=== PATIENT | female | born 1950 | race Caucasian/White ===

== ENCOUNTER 2021-03-06 12:09 | Emergency (ER) | payer MEDICARE, OTHER, SELFPAY ==
[2021-03-06 12:10] VITALS: BP 196/89; PULSE 73; RESP 16; TEMP 36.7; O2SAT 98; BMI 28.6
[2021-03-06 12:21] VITALS: BP 196/89; PULSE 72; RESP 15; O2SAT 97
--- NOTE | 2021-03-06 12:28 | ED_ITS ---
HPI - Chest Pain General: Chief Complaint: Chest Pain Stated Complaint: chest pain Time Seen by Provider: 03/06/21 12:15 Source: patient Mode of arrival: EMS Limitations: no limitations History of Present Illness: HPI narrative: Patient is a 70-year-old female with no significant medical history who presents to the emergency department after a single episode of chest pain while in her doctor's office. Chest pain was retrosternal and lasted for only a few minutes. She is currently chest pain-free. This happened about 3 hours ago. The patient was given aspirin in the clinic and sent to the emergency department to be evaluated. She has no cardiac history, her father had an NC in his 80s. She has no complaints at this moment. MD complaint: chest pain Onset (ago): hour(s) (3) Timing of current episode: episodic Prior episodes: No Onset: during rest Pain location: substernal Pain radiation: none Severity: mild Quality: sharp Relieving factors: rest Exacerbating factors: nothing Associated symptoms: Deny abdominal pain, diaphoresis, dyspnea, fever(s), leg edema, nausea, palpitations, sense of impending doom, syncope or vomiting Treatment prior to arrival: aspirin Review of Systems General: Reports: 10 or more systems reviewed and unremarkable except in HPI and below Const: Denies: fever(s) or diaphoresis Card: Denies: palpitations or syncope Resp: Denies: dyspnea GI: Denies: abdominal pain, nausea or vomiting FOR[facility]LY [facility] ED PFSH: Medical History Rhus dermatitis Social History Smoking and tobacco status: never smoked Second hand smoke exposure: No Smoking risk assessment/counseling performed?: No Alcohol intake: never Desire information about alcohol rehabilitation?: No Counseling given: No Desire information about substance/drug rehabilitation?: No Counseling given: No Physical Exam Const: COMMON NORMALS: no acute distress, average body habitus, patient oriented x3, no limitations, healthy appearing, alert and well nourished HENMT: COMMON NORMALS: normocephalic, atraumatic and moist oral mucous membranes HEAD & SCALP: normocephalic and atraumatic Neck/C-Spine: COMMON NORMALS: no meningeal signs and no JVD Chest: COMMONS NORMALS: normal inspection of the chest and normal palpation of entire chest wall Resp: COMMON NORMALS: normal respiratory effort, No retractions, No use of accessory muscles, clear to auscultation bilaterally and percussion normal AUSCULTATION: clear to auscultation bilaterally PERCUSSION: percussion normal Cardio: COMMON NORMALS: no JVD, regular rate, regular rhythm, S1 normal heart sound present, S2 normal heart sound present, No gallops present (Cardio), No clicks present (Cardio), No murmurs present (Cardio), No rub (Cardio) and Peripheral pulses 2+ throughout RATE: regular rate RHYTHM: regular rhythm HEART SOUNDS: S1 normal heart sound present and S2 normal heart sound present PERIPHERAL PULSES: Peripheral pulses 2+ throughout GI: COMMON NORMALS: Normal to inspection, nondistended, normoactive bowel sounds present, Soft to palpation, non-tender, No hepatosplenomegaly present, no masses and no bruits PALPATION: Yes Soft to palpation and Yes No hepatosplenomegaly present Extremity: COMMON NORMALS: normal to inspection, full ROM, capillary refill normal, no calf tenderness and no pedal edema Neuro: COMMON NORMALS: patient oriented x3 SENSORIUM/ORIENTATION: Yes alert MENINGEAL SIGNS: Yes no meningeal signs Course Reevaluation(s): Reevaluation #1: Discussed her lab and imaging findings with the patient and her daughter. Explained that her cardiac enzymes are not suggestive of a cardiac cause of her chest pain. The patient stated that she did not think she had a cardiac issue. Baseline troponin was normal and she had a flat 2-hour delta. She had very mild elevation of her lipase which I do not believe is clinically significant. We discussed her blood pressure and she said she had schedule an appointment with her primary care provider tomorrow for further evaluation of her blood pressure and to see if she needs to be started on medication. Blood pressure much improved following a single dose of intravenous labetalol. She is discharged home with no new orders. She voiced understanding and is in agreement with the plan. Time: 15:51 Vital Signs: Vital signs: Vital Signs Temperature 98.1 F 03/06/21 12:10 Pulse Rate 74 03/06/21 16:01 Respiratory Rate 14 03/06/21 16:01 Blood Pressure 145/96 03/06/21 16:01 Pulse Oximetry 97 03/06/21 16:01 MDM - Chest Pain MDM Narrative: Medical decision making narrative: 70-year-old female patient who presented to the emergency department with chest pain. Evaluation in the emergency department is unremarkable. She was noted to be in hypertensive urgency also although she has no prior history of hypertension. She will follow up with her primary care provider to see if her blood pressure remains elevated and if she needs to be started on antihypertensives. In the interim she will be discharged home with no new orders. Medical Records: Attestation: I reviewed the patient's medical records. Lab Data: Attestation: I reviewed the patient's lab results. Labs: Lab Results 03/06/21 03/06/21 03/06/21 Range/Units 12:20 12:20 12:20 WBC 10.7 H (4.0-10.0) 10^3/ uL RBC 4.94 (4.1-5.3) 10^6/u L Hgb 13.6 (11.5-15.3) g/dL Hct 42.3 (37.0-47.0) % MCV 85.6 (81-99) fL MCH 27.5 L (28.0-34.0) pg MCHC 32.2 (30.0-36.0) g/dL RDW 14.0 (12.1-15.1) % Plt Count 379 (130-400) 10^3/c mm MPV 10.8 H (7.4-10.4) fL Neut % (Auto) 59.4 % Lymph % (Auto) 28.4 % [place] % (Auto) 9.4 % Eos % (Auto) 1.5 % Baso % (Auto) 0.6 % Neut # (Auto) 6.35 (1.8-7.7) 10^3/u L Lymph # (Auto) 3.0 (0.8-4.8) 10^3/u L [place] # (Auto) 1.0 H (0.2-0.9) 10^3/u L Eos # (Auto) 0.2 (0.0-0.8) 10^3/u L Baso # (Auto) 0.1 (0.0-0.1) 10^3/u L Nucleated RBC % (a uto) 0 % Nucleated RBCs # 0.0 /100WBC Sodium 136 (136-145) mmol/L Potassium 4.5 (3.5-5.1) mmol/L Chloride 100 (98-107) mmol/L Carbon Dioxide 25 (22-29) mmol/L Anion Gap 15.5 (5-19) BUN 16 (8-23) mg/dL Creatinine 0.7 (0.5-0.9) mg/dL GFR Calculation 83.2 L (90-130) mL/min Glucose 81 (65-115) mg/dL Calculated Osmolal ity 282 L (285-295) mOsm/k g Calcium 9.3 (8.5-10.5) mg/dL Total Bilirubin 0.4 (0.15-1.2) mg/dL AST 23 (0-32) U/L ALT 21 (0-33) U/L Alkaline Phosphata se 88 (35-105) IU/L Troponin T Baselin e 10 (0-10) ng/L Troponin T 120 Min mentasta (0-10) ng/L Delta Troponin T (0-10) ABS# NT-Pro-B Natriuret Pep 313 H (0-125) pg/mL Total Protein 7.0 (6.6-8.7) g/dL Albumin 4.5 (3.5-5.2) g/dL Globulin 2.5 (1.3-4.6) g/dL Lipase 64 H (13-60) U/L 03/06/21 Range/Units 14:17 WBC (4.0-10.0) 10^3/ uL RBC (4.1-5.3) 10^6/u L Hgb (11.5-15.3) g/dL Hct (37.0-47.0) % MCV (81-99) fL MCH (28.0-34.0) pg MCHC (30.0-36.0) g/dL RDW (12.1-15.1) % Plt Count (130-400) 10^3/c mm MPV (7.4-10.4) fL Neut % (Auto) % Lymph % (Auto) % [place] % (Auto) % Eos % (Auto) % Baso % (Auto) % Neut # (Auto) (1.8-7.7) 10^3/u L Lymph # (Auto) (0.8-4.8) 10^3/u L [place] # (Auto) (0.2-0.9) 10^3/u L Eos # (Auto) (0.0-0.8) 10^3/u L Baso # (Auto) (0.0-0.1) 10^3/u L Nucleated RBC % (a uto) % Nucleated RBCs # /100WBC Sodium (136-145) mmol/L Potassium (3.5-5.1) mmol/L Chloride (98-107) mmol/L Carbon Dioxide (22-29) mmol/L Anion Gap (5-19) BUN (8-23) mg/dL Creatinine (0.5-0.9) mg/dL GFR Calculation (90-130) mL/min Glucose (65-115) mg/dL Calculated Osmolal ity (285-295) mOsm/k g Calcium (8.5-10.5) mg/dL Total Bilirubin (0.15-1.2) mg/dL AST (0-32) U/L ALT (0-33) U/L Alkaline Phosphata se (35-105) IU/L Troponin T Baselin e (0-10) ng/L Troponin T 120 Min mentasta 11.19 H (0-10) ng/L Delta Troponin T 1.19 (0-10) ABS# NT-Pro-B Natriuret Pep (0-125) pg/mL Total Protein (6.6-8.7) g/dL Albumin (3.5-5.2) g/dL Globulin (1.3-4.6) g/dL Lipase (13-60) U/L Imaging Data^: CXR: Attestation: I personally reviewed and interpreted this imaging study as follows: Radiologist's impression: [address] [address] XRay Report Signed Patient: Amrita Friedman #: [id number] : 2Acct#:[id number] Age/Sex: 70 / FADM Date: 03/06/21 Loc: ERRoom/Bed: Attending Dr: Ordering Provider/Ordering MD: Jeronimo Pierre MD, [facility] [place] Date of Service: 03/06/21 Procedure(s): XR chest 1V portable [id number] Accession Number(s): [id number] Report Number: [id number] PROCEDURE INFORMATION: Exam: XR Chest Exam date and time: 03/06/2021 12:29 PM Age: 70 years old Clinical indication: Chest pain; Type not specified; Additional info: Cp TECHNIQUE: Imaging protocol: XR of the chest. Views: 1 view. COMPARISON: No relevant prior studies available. FINDINGS: Lungs: Unremarkable. No consolidation. Pleural spaces: Unremarkable. No pleural effusion. No pneumothorax. Heart/Mediastinum: Unremarkable. No cardiomegaly. Bones/joints: Unremarkable. XR/XR chest 1V portable [id number] IMPRESSION: No acute findings. Dictated By:Brian Levi Signed By:Nisha Levi Date/Time:03/06/21 1320 DD/ 1319 EKG Data^: EKG 1: Attestation: I personally reviewed and interpreted this EKG as follows: EKG interpretation date: 03/06/21 EKG interpretation time: 12:21 Prior EKG tracings: not available for review Interpretation: Sinus rhythm. Heart rate 70 bpm. Normal axis. No ST changes. EKG 2: Attestation: I personally reviewed and interpreted this EKG as follows: EKG interpretation date: 03/06/21 EKG interpretation time: 15:31 Prior EKG tracings: available for review Interpretation: Sinus rhythm. Heart rate [address] changes. No significant change from earlier. Discharge Plan Discharge Patient Disposition: Home Clinical Impression: Blood pressure elevated without history of HTN Chest pain Qualifiers: Chest pain type: unspecified Qualified Code(s): R07.9 - Chest pain, unspecified Condition: Stable Prescriptions: Continued timolol maleate 0.5 % drops 1 drp ophthalmic (eye) DAILY RF: 0 ascorbate calcium (vitamin C) 500 mg tablet 500 mg PO DAILY RF: 0 magnesium chloride 64 mg tablet,delayed release (DR/EC) 64 mg PO DAILY RF: 0 cholecalciferol (vitamin D3) 25 mcg (1,000 unit) capsule 25 mcg PO DAILY RF: 0 Complete Multivitamin Tablet 1 tab PO DAILY RF: 0 methylprednisolone [Medrol (Leo)] 4 mg tablets,dose pack See Rx Instructions PO PER PKG DIR RF: 0 calcium 500 mg Tablet 500 mg PO BID RF: 0 potassium 99 mg Tablet 99 mg PO DAILY RF: 0 Glucosamine Chondroitin 550-30-1 mg Capsule 1 cap PO BID RF: 0 Discharge Orders: Discharge ED (Routine); Ordered 03/06/21 Ordered By: Jeronimo Pierre Referrals: THONG Pearson, MEDICAL IMAGING TECHNOLOGIST [Primary Care Provider] - 1-3 days Discharge Diet: Usual diet Discharge Activity: Limit activity as instructed Patient Instructions: Chest Pain (ED) Activity Restrictions/Additional Instructions: Return for any new or worsening symptoms. Follow-up with your primary care provider within 3 days for follow-up of your blood pressure and further evaluation. Continue your home medications. Coding Level of Care Code ED Cashier Payments Received for Haydeeg Fwd Exam Comprehensive
--- NOTE | 2021-03-06 12:28 | ECG_ITS ---
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 Measurements Intervals Warren Rate: 70 P: 58 AK: 150 QRS: -11 QRSD: 87 T: 35 QT: 376 QTc: 408 Interpretive Statements SINUS RHYTHM POSSIBLE LEFT ATRIAL ENLARGEMENT [-0.1mV P WAVE IN V1/V2] POSSIBLE RIGHT VENTRICULAR CONDUCTION DELAY [RSR (QR) IN V1/V2] No previous ECG available for comparison Electronically Signed On 03-07-2021 7:40:58 CDT by Hank Escalante M.D. [id number]
[2021-03-06 12:51] LABS: Basophils # 0.1 10^3/uL (0.0-0.1); Basophils % 0.6 %; Eosinophils # 0.2 10^3/uL (0.0-0.8); Eosinophils % 1.5 %; Hematocrit 42.3 % (37.0-47.0); Hemoglobin 13.6 g/dL (11.5-15.3); Lymphocytes % 28.4 %; Mean Corpuscular HGB Conc 32.2 g/dL (30.0-36.0); Mean Corpuscular Hemoglobin 27.5 pg (28.0-34.0); Mean Corpuscular Volume 85.6 fL (81-99); Mean Platelet Volume 10.8 fL (7.4-10.4); Monocytes % 9.4 %; Neutrophils # 6.35 10^3/uL (1.8-7.7); Neutrophils % 59.4 %; Nucleated Red Blood Cells % 0 %; Platelet Count 379 10^3/cmm (130-400); Red Blood Count 4.94 10^6/uL (4.1-5.3); White Blood Count 10.7 10^3/uL (4.0-10.0)
[2021-03-06 13:04] LABS: Troponin(5th) Baseline 10 ng/L (0-10)
[2021-03-06 13:13] LABS: Alanine Aminotransferase 21 U/L (0-33); Albumin Level 4.5 g/dL (3.5-5.2); Alkaline Phosphatase 88 IU/L (35-105); Blood Urea Nitrogen 16 mg/dL (8-23); Calcium 9.3 mg/dL (8.5-10.5); Carbon Dioxide 25 mmol/L (22-29); Chloride 100 mmol/L (98-107); Globulin 2.5 g/dL (1.3-4.6); Glomerular Filtration Rate 83.2 mL/min (90-130); Glucose 81 mg/dL (65-115); Lipase 64 U/L (13-60); NT Pro B Type Natriuretic Pept 313 pg/mL (0-125); Osmolality Calculated 282 mOsm/kg (285-295); Sodium 136 mmol/L (136-145); Total Bilirubin 0.4 mg/dL (0.15-1.2)
[2021-03-06 13:19] LABS: Anion Gap 15.5 (5-19); Aspartate Amino Transferase 23 U/L (0-32); Potassium 4.5 mmol/L (3.5-5.1)
[2021-03-06 13:54] VITALS: BP 188/116; PULSE 72; RESP 19; O2SAT 97
[2021-03-06] MEDS: labetalol 5 mg/mL SDV 20mL 10 MG IVP (14:19)
--- NOTE | 2021-03-06 14:28 | ECG_ITS ---
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 Measurements Intervals Tiro Rate: 65 P: 56 MO: 142 QRS: -12 QRSD: 96 T: 22 QT: 388 QTc: 403 Interpretive Statements SINUS RHYTHM POSSIBLE LEFT ATRIAL ENLARGEMENT [-0.1mV P WAVE IN V1/V2] INCOMPLETE RIGHT BUNDLE BRANCH BLOCK [90+ ms QRS DURATION, TERMINAL R IN V1/V2, 40+ ms S IN I/aVL/V4/V5/V6] MODERATE ST DEPRESSION [0.05+ mV ST DEPRESSION] Compared to ECG 03/06/2021 12:21:08 Incomplete right bundle-branch block now present ST (T wave) deviation now present Electronically Signed On 03-07-2021 7:45:01 CDT by Hank Escalante M.D. [id number]
[2021-03-06 14:45] VITALS: BP 174/97; PULSE 68; RESP 20; O2SAT 95
[2021-03-06 14:47] LABS: Troponin 5 2HR 11.19 ng/L (0-10); Troponin 5 2HR Delta 1.19 ABS# (0-10)
[2021-03-06 16:01] VITALS: BP 145/96; PULSE 74; RESP 14; O2SAT 97
== END 2021-03-06 16:02 | disposition home or self-care (01) ==
PROVIDERS: Emergency Provider Family Medicine; PCP Nurse Practitioner Family
DX: R07.9 Chest pain, unspecified (principal); R03.0 Elevated blood-pressure reading, without diagnosis of hypertension
CPT/HCPCS: 36415; 71045; 80053; 83690; 83880; 84484; 85025; 93005; 96374; 99284; J3490

== ENCOUNTER 2021-04-04 08:30 | Outpatient (CLI) | payer MEDICARE, OTHER, SELFPAY ==
[2021-04-04 09:17] VITALS: BMI 27.3
--- NOTE | 2021-04-04 09:19 | ECG_ITS ---
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 Interpretive Statements NAME OF STUDY: LEXISCAN SESTAMIBI STRESS TEST INDICATION: Chest Pain PROCEDURE: At the baseline, the blood pressure was 153/84 mm Hg with a heart rate of 67 bpm. The electrocardiogram showed normal sinus rhythm, normal axis and normal EKG. The Lexiscan was infused over a period of 20 seconds. A total of 0.4 milligrams of Lexiscan was infused. The stress phase was continued for a total of 5 minutes. Heart rate at the end of the stress phase was 96 bpm with a blood pressure of 158/86 mm Hg. The EKG at the peak infusion revealed sinus rhythm with no significant ST-T wave changes. Sestamibi was injected 20 seconds after the Lexiscan infusion. Blood pressure at the end of the recovery phase was 148/83 mm Hg with a heart rate of 85 beats per minute. CONCLUSION: 1. Normal EKG response to LexiScan infusion. 2. No LexiScan induced chest pain or cardiac arrhythmia. 3. Normal blood pressure and heart rate response. 4. Sestamibi/sestamibi perfusion scan pending; see separate report. Electronically Signed On 04-06-2021 16:57:56 CDT by Mari Benjamin M.D. [id number]
--- NOTE | 2021-04-04 09:19 | NMCV_ITS ---
NM kristin perf SPECT r/s* [id number] Amrita Friedman Age: 70 Gender: F : 1950 Exam Date: 04/04/2021 10:08 Ordering Phys: Felix Gibbons MD Technologist: MADDI Diamond Exam Location: [facility] Indications: CHEST PAIN STRESS TEST Please see separate stress test report in [facility] for full findings IMAGE PROTOCOL Rest/Stress 1 Lexiscan Day Radiopharmaceutical Dose (mCi) Administration Site Administered by Rest: Tc-99m 10.9 IV MADDI To Sestamibi Stress:Tc-99m 32.3 IV MADDI To Sestamibi Rest: 04-Apr-2021 60 Discovery 630 Stress: 04-Apr-2021 30 Discovery 630 0.4mg Lexiscan. Images obtained in supine and prone position. SPECT RESULTS Technical Quality: Excellent Raw Data Analysis: Normal Image Corrections: No attenuation or motion correction applied Summed Stress Score: 0 Summed Rest Score: 1 Summed Difference Score: 0 PERFUSION FINDINGS Very small sized perfusion abnormality of apical anterior and apical septal rajput on rest images with improved tracer uptake in stress images. FUNCTIONAL RESULTS (calculated via Gated SPECT) Stress Image LV EF (%): 86 Stress EDV (mL):57 TID: 0.9 Stress ESV (mL):8 FUNCTIONAL FINDINGS: The left ventricle is normal in size. Transient Ischemia Dilatation of 0.9. There is hyperdynamic left ventricular systolic function. The left ventricular ejection fraction is hyperdynamic with a value of 86%. There is hyperdynamic left ventricular wall thickening with no regional wall motion abnormality. Normal end diastolic and end systolic volumes. IMPRESSIONS 1. Myocardial perfusion imaging is normal. 2. There is hyperdynamic left ventricular wall thickening with no regional wall motion abnormality. 3. The left ventricular ejection fraction is hyperdynamic with a value of 86%. 4. This study suggests a low likelihood of angiographically significant coronary artery disease. 5. No prior similar studies to compare. Mari Benjamin MD (Electronically Signed) Final Date: 08 Apr 2021 23:54 S
[2021-04-04 11:15] VITALS: BP 148/83; PULSE 83
[2021-04-04] MEDS: regadenoson 0.4 Mg/5 ml Syringe IVP (11:44)
--- NOTE | 2021-04-04 12:45 | USCV_ITS ---
Amrita Friedman Age: 70 Gender: F : 1950 Exam Date: 04/04/2021 09:33 Ordering Phys: Felix Gibbons MD Technologist: Emily Miranda [place] [facility] [place]: [place]ST PAIN BP: 110 / 62 HR: 60 Rhythm: Sinus Technical Quality: Adequate MEASUREMENTS (Male / Female) Normal Values 2D ECHO LV Diastolic Diameter PLAX 4.0 cm 4.2 - 5.9 / 3.9 - 5.3 cm LV Systolic Diameter PLAX 2.4 cm IVS Diastolic Thickness 1.3 cm 0.6 - 1.0 / 0.6 - 0.9 cm IVS Systolic Thickness 1.6 cm LVPW Diastolic Thickness 1.3 cm 0.6 - 1.0 / 0.6 - 0.9 cm LVPW Systolic Thickness 1.4 cm LVOT Diameter 2.0 cm LV Ejection Fraction 2D Teich 72.5 % LV Ejection Fraction MOD 2C 67.6 % LV Ejection Fraction 2C AL 66.8 % LA Diameter 2.9 cm Aorta at Sinotubular Diameter 2.7 cm M-MODE LV Diastolic Diameter MM 4.2 cm 4.2 - 5.9 / 3.9 - 5.3 cm LV Systolic Diameter MM 2.0 cm LV Ejection Fraction MM Teich 83.4 % IVS Diastolic Thickness MM 1.2 cm 0.6 - 1.0 / 0.6 - 0.9 cm IVS Systolic Thickness MM 2.0 cm LVPW Diastolic Thickness MM 1.1 cm 0.6 - 1.0 / 0.6 - 0.9 cm LVPW Systolic Thickness MM 1.7 cm Aortic Annulus Diameter 3.1 cm LA Ao Ratio MM 0.9 MV E Point Septal Separation 0.2 cm DOPPLER AV Peak Velocity 121.0 cm/s LVOT Peak Velocity 98.0 cm/s AV Area Cont Eq vti 2.6 cm squared AV Area Cont Eq pk 2.5 cm squared MV Area PHT 5.0 cm squared Mitral E to A Ratio 0.7 MV E' Velocity 23.0 cm/s Mitral E to MV E' Ratio 7.7 Mitral E to LV E' Lateral Ratio 7.6 Mitral E to LV E' Septal Ratio 7.9 TR Peak Velocity 119.7 cm/s TR Peak Gradient 5.7 mmHg Right Atrial Pressure 3.0 mmHg Pulmonary Artery Systolic Pressu 8.7 mmHg RV Acceleration Time 0.1 s RV Ejection Time 0.3 s RV AcT/ET 0.4 FINDINGS Left Ventricle Normal left ventricular size. LV systolic function is normal with EF of 55-60%. No regional wall motion abnormalities. Grade 1 diastolic dysfunction Right Ventricle The right ventricle is normal in size and function. Right Atrium The right atrium is normal in size. Left Atrium The left atrium is normal in size. Mitral Valve Structurally normal mitral valve without significant stenosis or prolapse. There is no mitral regurgitation. Aortic Valve Structurally normal aortic valve without significant sclerosis or stenosis. There is no aortic regurgitation. Tricuspid Valve Structurally normal tricuspid valve without significant stenosis or regurgitation. Insufficient TR jet to calculate RVSP Pulmonic Valve Structurally normal pulmonic valve without significant stenosis. There is no pulmonic regurgitation. Pericardium Normal pericardium without effusion. Aorta Normal ascending aorta dimension. CONCLUSIONS LV systolic function is normal with EF of 55-60% Grade 1 diastolic dysfunction No significant valvular heart disease No prior echos for comparison. Jag Warren MD (Electronically Signed) Final Date: 04 Apr 2021 11:00 S
== END 2021-04-04 08:31 | disposition home or self-care (01) ==
PROVIDERS: PCP Nurse Practitioner Family; Visit Provider Family Medicine
DX: R07.9 Chest pain, unspecified (principal); I51.89 Other ill-defined heart diseases
CPT/HCPCS: 78452; 93017; 93306; A9500; J2785

== ENCOUNTER → 2021-05-08 08:31 | Outpatient (BNVA) | payer MEDICARE, OTHER, SELFPAY | PROVIDERS: PCP Nurse Practitioner Family; Visit Provider Internal Medicine Cardiovascular Disease | DX: I10 Essential (primary) hypertension (principal); R07.9 Chest pain, unspecified; L25.5 Unspecified contact dermatitis due to plants, except food; E78.5 Hyperlipidemia, unspecified | CPT/HCPCS: 80053; 80061; 83735; 83880; 84443; 85025 ==

== ENCOUNTER → 2021-11-07 08:37 | Outpatient (BNVA) | payer MEDICARE, OTHER, SELFPAY | PROVIDERS: PCP Nurse Practitioner Family; Visit Provider Internal Medicine Cardiovascular Disease | DX: E78.5 Hyperlipidemia, unspecified (principal); I10 Essential (primary) hypertension | CPT/HCPCS: 80053; 80061 ==

== ENCOUNTER → 2022-02-12 08:26 | Outpatient (BNVA) | payer MEDICARE, OTHER, SELFPAY | PROVIDERS: PCP Nurse Practitioner Family; Visit Provider Nurse Practitioner Family | DX: E78.5 Hyperlipidemia, unspecified (principal); E55.9 Vitamin D deficiency, unspecified; Z79.899 Other long term (current) drug therapy | CPT/HCPCS: 80053; 80061; 81003; 82306; 83036; 84443; 85025 ==

== ENCOUNTER → 2022-09-16 11:38 | Outpatient (BNVA) | payer MEDICARE, OTHER, SELFPAY | PROVIDERS: PCP Nurse Practitioner; Visit Provider Nurse Practitioner | DX: E78.5 Hyperlipidemia, unspecified (principal); I10 Essential (primary) hypertension | CPT/HCPCS: 80053; 80061; 84443; 85025 ==

== ENCOUNTER → 2022-12-11 14:58 | Outpatient (BNVA) | payer MEDICARE, OTHER, SELFPAY | PROVIDERS: PCP Nurse Practitioner; Visit Provider Internal Medicine Cardiovascular Disease | DX: I10 Essential (primary) hypertension (principal); Z87.891 Personal history of nicotine dependence | CPT/HCPCS: 99213; Q3014 ==

== ENCOUNTER → 2023-10-02 08:02 | Outpatient (BNVA) | payer MEDICARE, OTHER, SELFPAY | PROVIDERS: PCP Nurse Practitioner; Visit Provider Nurse Practitioner Family | DX: Z13.6 Encounter for screening for cardiovascular disorders (principal); E78.5 Hyperlipidemia, unspecified; Z79.899 Other long term (current) drug therapy; E55.9 Vitamin D deficiency, unspecified | CPT/HCPCS: 80053; 80061; 81003; 82306; 83036; 83735; 84443; 85025 ==

== ENCOUNTER → 2024-01-05 11:25 | Outpatient (BNVA) | payer MEDICARE, OTHER, SELFPAY | PROVIDERS: PCP Nurse Practitioner; Visit Provider Internal Medicine Cardiovascular Disease | DX: I10 Essential (primary) hypertension (principal); E78.5 Hyperlipidemia, unspecified; Z87.891 Personal history of nicotine dependence | CPT/HCPCS: 99213 ==

== ENCOUNTER → 2024-12-16 08:14 | Outpatient (BNVA) | payer MEDICARE, SELFPAY | PROVIDERS: PCP Nurse Practitioner Family; Visit Provider Nurse Practitioner Family | DX: E55.9 Vitamin D deficiency, unspecified (principal); E78.5 Hyperlipidemia, unspecified; Z79.899 Other long term (current) drug therapy; Z13.6 Encounter for screening for cardiovascular disorders; R53.83 Other fatigue | CPT/HCPCS: 80053; 80061; 81003; 82306; 83036; 84443; 85025 ==

== ENCOUNTER → 2025-01-10 14:37 | Outpatient (BNVA) | payer MEDICARE, OTHER, SELFPAY | PROVIDERS: PCP Nurse Practitioner Family; Visit Provider Internal Medicine Cardiovascular Disease | DX: I10 Essential (primary) hypertension (principal); E78.5 Hyperlipidemia, unspecified | CPT/HCPCS: 99214 ==

== ENCOUNTER 2025-01-26 09:48 | Outpatient (CLI) | payer MEDICARE, OTHER, SELFPAY ==
--- NOTE | 2025-01-26 10:00 | MM_ITS ---
WS: [id number] BILATERAL SCREENING DIGITAL TOMOSYNTHESIS MAMMOGRAM WITH CAD HISTORY: Z12.31 - Encounter for screening mammogram for malignant ... COMPARISON: 05/22/2016 Bilateral CC and MLO views with tomosynthesis and synthetic mammography submitted. Computer aided detection analyzed. Breast composition: There are scattered areas of fibroglandular density. No suspicious masses, microcalcifications or architectural distortion. Benign calcification RIGHT breast. MM/MM scr BI tomosynthesis [id number] IMPRESSION: BI-RADS: 2 - Benign. FOLLOW UP: 1 Year Follow-up
== END 2025-01-26 09:49 | disposition home or self-care (01) ==
PROVIDERS: PCP Nurse Practitioner Family; Visit Provider Nurse Practitioner Family
DX: Z12.31 Encounter for screening mammogram for malignant neoplasm of breast (principal); R92.323 Mammographic fibroglandular density, bilateral breasts; R92.1 Mammographic calcification found on diagnostic imaging of breast
CPT/HCPCS: 77063; 77067

== ENCOUNTER 2025-02-11 12:07 | Outpatient (CLI) | payer MEDICARE, OTHER, SELFPAY ==
--- NOTE | 2025-02-11 12:15 | MR_ITS ---
WS: [id number] MRI LEFT KNEE NONCONTRAST TECHNIQUE: Axial PD, coronal PD fat sat, coronal PD, sagittal PD, and sagittal PD fat-sat images obtained. CLINICAL INFORMATION: M23.209 - Derangement of unspecified meniscus due to old ... COMPARISON: None. FINDINGS: Distal quadriceps and patella tendons are intact. Hypertrophic patella. ACL and PCL are intact. Advanced chondromalacia patella grade 4 with subchondral edema. Small suprapatellar effusion. Chronic thinning of the medial lateral meniscus. Complex horizontal tear posterior horn medial meniscus extending to the articular surface. Blunting of the medial meniscus and meniscal root. Peripheral extrusion of the medial meniscus. 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 Medial lateral patellar retinaculum appear intact. Lateral collateral ligament and biceps femoris appear intact. Fibular head appears normal. Diffuse soft tissue edema about the knee. Soft tissue edema worse involving the medial joint compartment. Grade 1-2 injury MCL which appears grossly intact. MR/MR knee LT wo con* [id number] IMPRESSION: 1. Advanced tricompartmental arthritis. 2. High-grade complex horizontal tear posterior horn medial meniscus extending to the articular surface. 3. Moderate suprapatellar effusion with grade IV chondromalacia patella. 4. Grade 1-2 injury MCL which appears grossly intact. 5. Diffuse soft tissue edema about the knee. Outbridge grading: grade IV: full-thickness cartilage loss with underlying bone reactive changes
== END 2025-02-11 12:08 | disposition home or self-care (01) ==
PROVIDERS: PCP Nurse Practitioner Family; Visit Provider Nurse Practitioner Family
DX: S83.242A Other tear of medial meniscus, current injury, left knee, initial encounter (principal); S89.82XA Other specified injuries of left lower leg, initial encounter; X58.XXXA Exposure to other specified factors, initial encounter; M17.12 Unilateral primary osteoarthritis, left knee; M22.42 Chondromalacia patellae, left knee; R93.6 Abnormal findings on diagnostic imaging of limbs
CPT/HCPCS: 73721

== ENCOUNTER → 2025-02-15 09:36 | Outpatient (BNVA) | payer MEDICARE, OTHER, SELFPAY | PROVIDERS: PCP Nurse Practitioner Family; Visit Provider Orthopaedic Surgery | DX: M23.207 Derangement of unspecified meniscus due to old tear or injury, left knee (principal) | CPT/HCPCS: 99204 ==

== ENCOUNTER → 2025-02-22 10:53 | Outpatient (BNVA) | payer MEDICARE, OTHER, SELFPAY | PROVIDERS: PCP Nurse Practitioner Family; Visit Provider Nurse Practitioner Family | DX: Z01.818 Encounter for other preprocedural examination (principal); G62.9 Polyneuropathy, unspecified; D64.9 Anemia, unspecified; E55.9 Vitamin D deficiency, unspecified; Z13.6 Encounter for screening for cardiovascular disorders | CPT/HCPCS: 80053; 81003; 82306; 82607; 83921; 85025; 86038; 86200 ==

== ENCOUNTER 2025-03-09 11:18 | Day surgery (SDC) | payer MEDICARE, OTHER, SELFPAY ==
[2025-03-09] VITALS (9 sets, daily range): BP systolic 124–157; BP diastolic 82–92; PULSE 67–81; RESP 16; TEMP 36.1–36.8; O2SAT 96–98; BMI 28.1
[2025-03-09] MEDS: sodium chloride 0.9% 1,000 ML 30 ML IV (11:49)
--- NOTE | 2025-03-09 13:01 | ANES.PREANE2 ---
Pre-Anesthetic Assessment Height/Weight: Height 1.73 m Weight 83.915 kg Temp Pulse Resp BP Pulse Ox O2 Del Method 98.2 F 76 16 124/85 97 Room Air 03/09/25 11:35 03/09/25 11:35 03/09/25 11:35 03/09/25 11:35 03/09/25 11:35 03/09/25 11:35 Operation Date: 03/09/25 13:00 Proposed Procedures p LEFT KNEE DIAGNOSTIC AND SURGICAL ARTHROSCOPY WITH PARTIAL MEDIAL OR LATERAL MENISCUS REPAIR(Left) - Mariano Henao MD Familial anesthetic complications: none Was Beta Jason taken within 24 hours: N/A Was Clonidine taken within 24 hours: N/A Last intake: Intake Last Liquid Date 03/08/25 Last Liquid Time 22:00 Last Solid Date 03/08/25 Last Solid Time 21:00 Social No alcohol and No tobacco Exam alert, oriented x 3, clear to auscultation bilaterally and regular rate & rhythm Airway Submandibular: within normal limits Cervical ROM: within normal limits Mallampati: Class II Dentition: full CV/HEM Anemia and Hypertension Neuropsych Neuropathy Anesthetic Plan ASA status: 2 Anesthesia: General Medications/Allergies Home Medications ?Medication ?Instructions ?Recorded ?Confirmed ?Last Taken ?Type ascorbate calcium (vitamin C) 500 500 mg PO DAILY 12/21/20 03/08/25 03/08/25 History mg tablet magnesium chloride 64 mg 64 mg PO DAILY 12/21/20 03/08/25 03/08/25 History (magnesium chloride) tablet,delayed release glucosamine sulf dipot 1 cap PO BID 03/06/21 03/08/25 03/08/25 History chlr,msm,chond 550 mg-C 30 mg-ramez 1 mg capsule (Glucosamine Chondroitin) potassium 99 mg tablet 99 mg PO DAILY 03/06/21 03/08/25 03/08/25 History calcium 500 mg tablet 600 mg PO BID 01/05/24 03/08/25 03/08/25 History baclofen 10 mg tablet 5 mg (1/2 x 10 mg) PO BID PRN 02/08/25 03/08/25 Unknown Rx muscle spasm 30 days #30 tabs atorvastatin 40 mg tablet 40 mg PO BEDTIME 03/08/25 03/08/25 03/08/25 History chlorthalidone 25 mg tablet 25 mg PO DAILY 03/08/25 03/08/25 03/08/25 History Allergies Allergy/AdvReac Type Severity Reaction Status Date / Time No Known Allergies Allergy Verified 02/22/25 10:10 Current Medications Generic Name Dose Route Start Last Admin Trade Name Pam PRN Reason Stop Dose Admin Sodium Chloride 1,000 mls @ 30 mls/hr 03/09/25 11:30 03/09/25 11:49 Sodium Chloride 0.9% IV 03/10/25 11:29 30 mls/hr .Q24H JORGE Administration PFSH Anesthesia Medical History (Updated 02/22/25 @ 10:49 by HERMILO Alan) Pre-op evaluation Encounter for screening for cardiovascular disorders Anemia Neuropathy HTN, goal below 130/80 Chronic meniscal tear of knee Scoliosis Muscle spasm Breast cancer screening by mammogram History of COVID-19 Skin lesion of back Trauma left hip Acute bacterial sinusitis Bronchitis Dyslipidemia Rhus dermatitis Family History Mother Mitral valve prolapse Father FH: CABG (coronary artery bypass surgery) Other Diabetes Denies family history of Stroke Social History Smoking and tobacco/nicotine status: never used tobacco/nicotine Second hand smoke exposure: No Alcohol intake: never Substance/Drug Use: never Data Anesthesia Cardiac Studies: Echocardiogram Ultrasound 04/04/21 Sestamibi Stress Test (Cardiology) 04/04/21
--- NOTE | 2025-03-09 13:35 | W.PM.OPSUD ---
Surgery/Procedure H&P Update DATE OF PROCEDURE: March 09, 2025 DATE H&P PERFORMED: 02/28/25 H&P UPDATE INFORMATION: I have reviewed H&P completed within last 30 days, I have examined patient prior to procedure, No changes to prior documentation, H&P to be scanned into chart and Risks and benefits of the procedure reviewed PREOP DIAGNOSIS: Internal derangement left knee PLANNED PROCEDURE: Operation Date: 03/09/25 13:00 Proposed Procedures p LEFT KNEE DIAGNOSTIC AND SURGICAL ARTHROSCOPY WITH PARTIAL MEDIAL OR LATERAL MENISCUS REPAIR(Left) - Mariano Henao MD
[2025-03-09] MEDS: ceFAZolin 2,000 mg SDV 2000 MG IVP (15:19)
[2025-03-09] MEDS: BUPivacaine 0.5% INJ 30 mL 20 ML INJECTION (15:57)
--- NOTE | 2025-03-09 16:14 | PM.OP ---
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 Gross and abided Procedure: Diagnostic left knee arthroscopy with partial medial lateral meniscectomies, chondroplasty of all stated areas, partial synovectomy Surgeon: Mariano Henao MD Anesthesia: General EBL: None Indications: Amrita is a 74-year-old white female who is referred to my office for evaluation of debilitating left knee pain. Primary care had already obtained an MRI which demonstrated a large fragmented tear posterior horn medial meniscus. Patient has failed all conservative measures and therefore at this time after clinical evaluation and MRI have confirmed a tear in her medial meniscus she was offered a diagnostic left knee arthroscopy. All risk benefits treatment alternatives were discussed and she was agreeable to this at this time. Procedure: After obtaining her consent patient taken to the operating room placed the op table supine position general anesthetic administered. Once good anesthesia was achieved left legs placed leg bell but the bed was dropped. Right leg padded appropriately. Left leg was prepped and draped usual fashion. After surgical timeout standard anterior medial and lateral portals were made with a #11 blade. Camera cannulas placed lateral portal into her knee is undertaken. Suprapatellar pouch had hypertrophic synovium in there that is quite inflamed. Posterior patella the main contact. As well as medial facet had grade II/III chondromalacia. This debrided down to stable cartilaginous base mechanical shaver. Partial synovectomy is done in the area to try and visualize the IT groove as well as to decompress the area. IT groove had grade II/III chondromalacia also and this too was debrided with mechanical shaver. Medial gutter was clear medial compartment demonstrated a large fragmented tear of the posterior one third of the medial meniscus. This was then debrided down to stable cartilaginous base with small hand instruments and mechanical shaver. Also noted was grade 2/3 with most of the articular surface of the medial femoral condyle. This was debrided down with mechanical shaver to stable cartilage space. Intercondylar notch demonstrated hypertrophic synovium however the ACL was intact. Lateral compartment demonstrated slight degenerative changes of the inner aspect of the posterior one third of the lateral meniscus and this was debrided with mechanical shaver down to stable cartilage space. Lateral gutter was clear. Knee was then washed sterile irrigation. Camera cannula was removed. Wounds were injected with quarter percent Marcaine plain numbering 20 cc. This was for postop pain management. Wounds are closed with 3-0 nylon interrupted sutures. Wounds are covered with Xeroform gauze, sterile gauze dressing, Kerlix wrap and Roverto wrap for compression. Patient was awakened transferred recovery room stable condition
--- NOTE | 2025-03-09 16:36 | ANE.PACU2 ---
Inpatient post-anesthesia follow up: Airway intact: Yes Vital signs: Temperature 97.1 F Pulse Rate 78 Respiratory Rate 16 Blood Pressure 147/83 Pulse Oximetry 97 Oxygen Delivery Me thod Room Air Oxygen Flow Rate Fraction of Inspir ed Oxygen Hydration adequate: Yes Nausea and vomiting: No Pain level: 3 Mental status: Baseline
[2025-03-09] MEDS: HYDROcodone-acetaminophen 5-325 mg Tablet 1 TAB PO (16:47)
== END 2025-03-09 17:40 | disposition home or self-care (01) ==
PROVIDERS: PCP Nurse Practitioner Family; Visit Provider Orthopaedic Surgery
PROC: (CPT 29870; principal; 2025-03-09 12:50)
DX: S83.242A Other tear of medial meniscus, current injury, left knee, initial encounter (principal); S83.282A Other tear of lateral meniscus, current injury, left knee, initial encounter; M22.42 Chondromalacia patellae, left knee; I10 Essential (primary) hypertension; E78.5 Hyperlipidemia, unspecified; G62.9 Polyneuropathy, unspecified; Z79.899 Other long term (current) drug therapy
CPT/HCPCS: 29880; J0690; J1100; J2371; J2405; J2704; J3010; J3490; J7030; J9999

== ENCOUNTER → 2025-03-24 09:22 | Outpatient (BNVA) | payer MEDICARE, OTHER, SELFPAY | PROVIDERS: PCP Nurse Practitioner Family; Visit Provider Orthopaedic Surgery | DX: Z98.890 Other specified postprocedural states (principal) | CPT/HCPCS: 99024 ==

== ENCOUNTER → 2025-10-14 09:01 | Outpatient (BNVA) | payer MEDICARE, OTHER, SELFPAY | PROVIDERS: PCP Nurse Practitioner Family; Visit Provider Dermatology | DX: D22.122 Melanocytic nevi of left lower eyelid, including canthus (principal); L82.1 Other seborrheic keratosis; L57.8 Other skin changes due to chronic exposure to nonionizing radiation; B07.8 Other viral warts; L53.8 Other specified erythematous conditions; R20.8 Other disturbances of skin sensation; R23.8 Other skin changes; L08.89 Other specified local infections of the skin and subcutaneous tissue | CPT/HCPCS: 17110; 99203 ==